=== PATIENT | female | born 1980 | race African-American/Black ===

== ENCOUNTER 2023-11-30 19:04 | Emergency (ER) | payer OTHER ==
[~2023-11-30] VITALS: Ht 165.1 cm; Wt 215.0 kg
[2023-11-30 20:08] LABS: Basophils # (auto) 0 10 ^3/uL (0-0.2); Basophils % (auto) 0.6 % (0.0-2.0); Eosinophils # (auto) 0 10 ^3/uL (0-0.8); Eosinophils % (auto) 1.1 % (0.0-7.0); Hematocrit 35.1 % (36.0-46.0); Hemoglobin 12.1 g/dL (12.2-16.2); Lymphocytes % (auto) 28.1 % (10.0-50.0); Mean Corpuscular Hemoglobin 31.5 pg (28.0-32.0); Mean Corpuscular Hgb Conc. 34.4 g/dL (32.0-36.0); Mean Corpuscular Volume 91.7 fL (80.0-100.0); Monocytes # (auto) 0.4 10 ^3/uL (0-1.3); Monocytes % (auto) 11.5 % (0.0-12.0); Neutrophils # (auto) 2.1 10 ^3/uL (1.6-8.6); Neutrophils % (auto) 58.7 % (37.0-80.0); Red Blood Cells 3.82 10^6/uL (4.0-5.20); Red Cell Distribution Width 12.7 % (11.8-14.3); White Blood Cell 3.6 10^3/uL (4.4-10.8)
[2023-11-30 20:16] VITALS: PULSE 80; RESP 18; O2SAT 97
[2023-11-30 20:24] LABS: Alanine Aminotransferase 17 U/L (7-40); Albumin 3.8 g/dL (3.2-4.8); Alkaline Phosphatase 54 U/L (46-116); Anion Gap 13 (5-15); Aspartate Aminotransferase 14 U/L (13-40); BUN/Creatinine Ratio 13.2 (10.0-20.0); Bilirubin, Total 0.2 mg/dL (0.2-1.0); Blood Urea Nitrogen 9 mg/dL (9-23); Calcium 9.1 mg/dL (8.7-10.4); Carbon Dioxide 19 mmol/L (20-30); Chloride 107 mmol/L (98-107); Glucose 193 mg/dL (74-106); Magnesium 1.8 mg/dL (1.6-2.6); Potassium 3.8 mmol/L (3.5-5.1); Sodium 139 mmol/L (136-145)
[2023-11-30 20:25] LABS: Total Protein 6.2 g/dL (5.7-8.2)
[2023-11-30] MEDS: SODIUM CHLORIDE 0.9% 1,000 ML IVB ONE (20:34)
[2023-11-30 21:09] LABS: Urine Bacteria None Seen /hpf (None Seen)
[2023-11-30 21:21] LABS: Urine Blood Negative /uL (Negative); Urine Clarity Clear (Clear); Urine Color Colorless (Yellow); Urine Protein, UAD Negative (Negative); Urine Specific Gravity 1.008 (1.001-1.035); Urine Urobilinogen Normal (Negative); Urine WBC 1 /hpf (0 - 5); Urine pH 6.5 (5.0-9.0)
[2023-11-30 21:35] LABS: Amphetamine Screen, Urine Neg (NEGATIVE); Barbiturate Scree,Urine Neg (NEGATIVE); Benzodiazephine Screen, Urine Neg (NEGATIVE); Cannabinoid Screen, Urine Neg (NEGATIVE); Cocaine Screen, Urine Neg (NEGATIVE); Opiate Scree,Urine Neg (NEGATIVE); Phencyclidine Screen, Urine Neg (NEGATIVE)
[2023-12-01 08:00] VITALS: PULSE 74; RESP 16; O2SAT 98
[2023-12-01] MEDS ORDERED: HYDR50TA32 PO (11:05)
[2023-12-01] MEDS ORDERED: LISI10TA34 PO (11:05)
[2023-12-01] MEDS ORDERED: ARIP2TAB PO (11:05)
[2023-12-01] MEDS ORDERED: GABA-1250 PO (11:05)
[2023-12-01] MEDS ORDERED: DIVA-91 PO (11:05)
[2023-12-01] MEDS: LISINOPRIL 5 MG TAB PO ONE (13:22)
[2023-12-01] MEDS: hydrOXYzine 25 MG TAB or CAP PO ONE (13:22)
[2023-12-01] MEDS: GABAPENTIN 300 MG CAP PO SCH (13:22)
[2023-12-01] MEDS ORDERED: DIV250ER PO (18:20)
[2023-12-01] MEDS: QUEtiapine FUMARATE 25 MG TAB PO SCH (21:29)
[2023-12-01] MEDS: hydrOXYzine 25 MG TAB or CAP PO SCH (21:30)
[2023-12-02] MEDS: POLYETHYLENE GLYCOL 17 GM PWDR PO ONE (04:48)
[2023-12-02] MEDS: ACETAMINOPHEN 325 MG TAB PO ONE ×2 (04:52→09:17)
[2023-12-02 08:00] VITALS: PULSE 79; RESP 16; O2SAT 98
[2023-12-02] MEDS: LISINOPRIL 20 MG TAB PO SCH (09:16)
[2023-12-02] MEDS: cloNIDine HCL 0.1 MG TAB PO ONE (17:26)
[2023-12-02 19:45] VITALS: PULSE 94; RESP 17; O2SAT 100
[2023-12-03] MEDS: ACETAMINOPHEN 325 MG TAB PO ONE ×2 (03:53→12:07)
[2023-12-03 08:58] VITALS: RESP 18
[2023-12-03] MEDS: POLYETHYLENE GLYCOL 17 GM PWDR PO ONE (09:59)
[2023-12-03 13:04] VITALS: BP 122/81; PULSE 84; RESP 18; TEMP 98; O2SAT 99
== END 2023-12-03 13:29 | disposition short-term general hospital (02) ==
LOC: EDBD 19:04 → ER 19:04
DX: T43.592A Poisoning by other antipsychotics and neuroleptics, intentional self-harm, initial encounter (principal); R10.2 Pelvic and perineal pain; I10 Essential (primary) hypertension; Y92.89 Other specified places as the place of occurrence of the external cause
CPT/HCPCS: 36415; 71045; 80053; 80307; 81001; 83735; 84484; 84702; 85025; 93005